=== PATIENT | female | born 1940 | race Caucasian/White ===

== ENCOUNTER → 2017-08-06 | Outpatient (CLI) | payer MEDICARE ==
[2017-08-06 14:05] LABS: Blood Urea Nitrogen 18 mg/dL (7-17)
--- NOTE | 2017-08-06 15:40 | CT ---
EXAMINATION TYPE: CT abdomen pelvis w con DATE OF EXAM: 08/06/2017 COMPARISON: NONE HISTORY: Flatulence, fatty liver, RLQ abdominal pain and abdominal distention CT DLP: 1223 mGycm CONTRAST: CT scan of the abdomen and pelvis is performed with Oral Contrast and with IV Contrast, patient injec peña with 100 ml mL of Isovue 300. FINDINGS: LUNG BASES-: No visible nodule. No infiltrate. There is evidence of cardiomegaly. LIVER/GB: No calcified gallstones. No space occupying hepatic lesion. Fatty hepatic infiltration n oted. Biliary tree is of normal caliber. PANCREAS: No inflammation. No distinct mass. SPLEEN: No splenic enlargement. No lesion seen. ADRENALS: No nodule. No thickening. KIDNEYS/BLADDER: No hydronephrosis. No nephrolithiasis. Simple appearing cyst lower pole right kidn ey measuring 2 cm.. Urinary bladder grossly unremarkable. BOWEL: Visualization of the appendix. Normal bowel caliber. No inflammation. GENITAL ORGANS: No gross abnormality. LYMPH NODES: No greater than 1cm abdominal or pelvic lymph nodes are appreciated. AORTA: No significant abnormality. OSSEOUS STRUCTURES: No significant abnormality is seen. OTHER: No significant additional abnormality is seen. IMPRESSION: 1. Hepatic steatosis. 2. Right renal cysts simple appearance.
== END | disposition home or self-care (01) ==
LOC: RADCTMAIN 13:24
PROVIDERS: ATTEND Family Medicine
DX: K76.0 Fatty (change of) liver, not elsewhere classified (principal); N28.1 Cyst of kidney, acquired; R10.31 Right lower quadrant pain
CPT/HCPCS: 82565; 84520; 74177; 36415; Q9967

== ENCOUNTER → 2018-02-02 | Outpatient (CLI) | payer MEDICARE ==
[2018-02-03 04:22] LABS: Cat Epith & Dander IgE <0.10 kU/L; Dermato. farinae IgE <0.10 kU/L; Dog Dander IgE <0.10 kU/L
[2018-02-03 04:24] LABS: Alternaria alternata IgE <0.10 kU/L; Birch IgE <0.10 kU/L; Cockroach IgE <0.10 kU/L; Maple (Box Elder) IgE <0.10 kU/L
[2018-02-03 04:25] LABS: Elm IgE <0.10 kU/L; Oak IgE <0.10 kU/L; Ragweed,Common IgE <0.10 kU/L
[2018-02-03 04:26] LABS: Red Top (Bentgrass) IgE <0.10 kU/L
== END | disposition home or self-care (01) ==
LOC: LABWHC1 16:50
PROVIDERS: ATTEND Otolaryngology
DX: J30.89 Other allergic rhinitis (principal)
CPT/HCPCS: 36415; 82785; 86003

== ENCOUNTER → 2018-02-27 | Outpatient (CLI) | payer MEDICARE ==
[2018-03-02 12:15] LABS: Alt. alternata IgE Class CLASS 0; Alternaria alternata IgE <0.35 kU/L (<0.35); Asperg. fumagatus IgE <0.35 kU/L (<0.35); Asperg. fumagatus IgE Class CLASS 0; Aureo. pullulans IgE <0.35 kU/L (<0.35); Birch(Com.Silvr) IgE <0.35 kU/L (<0.35); Birch(Com.Silvr) IgE Class CLASS 0; Candida albicans IgE Class CLASS 0; Cat Epith & Dander IgE <0.35 kU/L (<0.35); Cat Epith & Dander IgE Class CLASS 0; Clad herbarum IgE <0.35 kU/L (<0.35); Cockroach IgE <0.35 kU/L (<0.35); Com. Pigweed IgE <0.35 kU/L (<0.35); Com. Pigweed IgE Class CLASS 0; Cottonwood IgE <0.35 kU/L (<0.35); Dermato. Pteronyssinus IgE <0.35 kU/L (<0.35); Dermato. farinae IgE <0.35 kU/L (<0.35); Dermato. farinae IgE Class CLASS 0; Dog Dander IgE <0.35 kU/L (<0.35); English Plantain IgE Class CLASS 0; Epicoccum purpurascens Class CLASS 0; Epicoccum purpurascens IgE <0.35 kU/L (<0.35); Johnson Grass IgE Class CLASS 0; Lamb's Quarter IgE <0.35 kU/L (<0.35); Lamb's Quarter IgE Class CLASS 0; Maple (Box Elder) IgE <0.35 kU/L (<0.35); Maple (Box Elder) IgE Class CLASS 0; Mucor racemosus IgE <0.35 kU/L (<0.35); Mucor racemosus IgE Class CLASS 0; Oak IgE <0.35 kU/L (<0.35); Rhizopus nigricans IgE <0.35 kU/L (<0.35); S.rostrata/Helminth Class CLASS 0; S.rostrata/Helminth IgE <0.35 kU/L (<0.35); Sycamore(Mpl.Lf) IgE <0.35 kU/L (<0.35); Timothy Grass IgE <0.35 kU/L (<0.35); Walnut Tree IgE <0.35 kU/L (<0.35); Walnut Tree IgE Class CLASS 0; White Ash IgE Class CLASS 0
== END | disposition home or self-care (01) ==
LOC: LABWHC1 16:06
PROVIDERS: ATTEND Otolaryngology
DX: J30.89 Other allergic rhinitis (principal)
CPT/HCPCS: 36415; 86003

== ENCOUNTER → 2018-04-14 | Outpatient (CLI) | payer MEDICARE ==
[2018-04-14 16:20] LABS: Basophils # (A) 0.1 k/uL (0-0.2); Basophils % (A) 1 %; Eosinophils # (A) 0.2 k/uL (0-0.7); Eosinophils % (A) 2 %; Lymphocytes # (A) 2.8 k/uL (1.0-4.8); Lymphocytes % (A) 35 %; MCH 30.4 pg (25.0-35.0); MCHC 32.6 g/dL (31.0-37.0); MCV 93.1 fL (80.0-100.0); Mean Platelet Volume 7.1; Monocytes # (A) 0.6 k/uL (0-1.0); Monocytes % (A) 7 %; Neutrophils # (A) 4.3 k/uL (1.3-7.7); Neutrophils % (A) 53 %; Platelet Count 288 k/uL (150-450); RBC 4.62 m/uL (3.80-5.40); RDW 12.7 % (11.5-15.5); WBC 8.1 k/uL (3.8-10.6)
[2018-04-15 01:05] LABS: Anion Gap 10.5 mmol/L (4.00-12.00); Carbon Dioxide 25.5 mmol/L (21.6-31.8); Potassium 3.6 mmol/L (3.5-5.5)
== END | disposition home or self-care (01) ==
LOC: LABWHC1 14:59
PROVIDERS: ATTEND Obstetrics & Gynecology
DX: Z01.818 Encounter for other preprocedural examination (principal); Z01.812 Encounter for preprocedural laboratory examination
CPT/HCPCS: 36415; 80048; 85025; 93005

== ENCOUNTER 2018-04-23 05:30 | Inpatient (IN) | payer MEDICARE ==
--- NOTE | 2018-04-22 18:04 | P.HPOB ---
History of Present Illness H&P Date: 04/22/18 Chief Complaint: Vaginal prolapse Raven is a 77-year-old female with vaginal prolapse. She is symptomatic and has a significant posterior prolapse with some anterior prolapse. She is scheduled for a posterior repair with possible anterior repair. She was offered evaluation and referral to urogynecology for which she declined. Risks/ benefits/alternatives to this procedure were discussed with the patient in detail and all questions were answered for her prior to proceeding to the operating room. She's had these prolapse for a significant time but the symptoms have gotten worse and she is noted to have a grade 3 rectocele. Small cystocele was noted on exam but the rectocele essentially blocks the cystocele was completely. Uterus itself is high in the vagina and does not descend but it was explained her that this may change some during the repair but no hysterectomy is scheduled for planned at this time. All other questions were answered for her prior to proceeding to the operating room. On physical exam vital signs are stable and afebrile. Heart regular, lungs clear, extremities are without pain. Abdomen is soft and nontender. Pelvic exam as above. Past Medical History Past Medical History: COPD, Hyperlipidemia, Hypertension, Myocardial Infarction ([place]), Rheumatoid Arthritis ([place]) Additional Past Medical History / Comment(s): HEALING WOUND FROM [facility] SURGERY. ONLEFT, INNER CALF Last Myocardial Infarction Date:: UNKNOWN History of Any Multi-Drug Resistant Organisms: None Reported Past Surgical History: Back Surgery, Heart Catheterization With Stent, Hernia Repair, Tonsillectomy Additional Past Surgical History / Comment(s): BILATERAL CATARACTS WITH LENS. UMB HERNIA. LAMINECTOMY. Past Anesthesia/Blood Transfusion Reactions: Motion Sickness Date of Last Stent Placement:: 2008 Past Psychological History: No Psychological Hx Reported Smoking Status: Former smoker Past Alcohol Use History: Rare Additional Past Alcohol Use History / Comment(s): QUIT IN 1989, STARTED UP AGAIN A COUPLE YEARS AGO. FINALLY QUIT 2014. Past Drug Use History: None Reported - Past Family History Mother Family Medical History: No Reported History Medications and Allergies Home Medications Medication Instructions Recorded Confirmed Type Albuterol Inhaler [Ventolin Hfa 1 puff INHALATION DIRECTED PRN 04/17/1804/17 History Inhaler] Aspirin [Adult Low Dose Aspirin EC] 81 mg PO DAILY 04/17/18 04/17/18 History Cetirizine HCl [Zyrtec] 10 mg PO HS PRN 04/17/18 04/17/18 History Cholecalciferol [Vitamin D3] 5,000 unit PO 04/17/18 History Ibuprofen 200 - 400 mg PO Q6H PRN 04/17/18 04/17/18 History Losartan Potassium [Cozaar] 100 mg PO HS 04/17/18 04/17/18 History Metoprolol Tartrate [Lopressor] 12.5 mg PO BID 04/17/18 04/17/18 History Multivitamins, Thera [Multivitamin 1 tab PO DAILY 04/17/18 04/17/18 History (formulary)] [place]-3 Fatty Acids/Fish Oil [Fish 1 cap PO DAILY 04/17/18 04/17/18 History Oil 1,000 mg Softgel] Pravastatin Sodium [Pravachol] 40 mg PO HS 04/17/18 04/17/18 History Ubidecarenone [Co Q-10] 100 mg PO DAILY 04/17/18 04/17/18 History Umeclidinium Brm/Vilanterol Tr 1 puff INHALATION QAM 04/17/18 04/17/18 History [Anoro Ellipta 62.5-25 Mcg INH] amLODIPine [Norvasc] 5 mg PO HS 04/17/18 04/17/18 History Allergies Allergy/AdvReac Type Severity Reaction Status Date / Time cephalexin [From Keflex] AdvReac THRUSH Verified 04/17/18 14:37 Exam Osteopathic Statement: *. No significant issues noted on an osteopathic structural exam other than those noted in the History and Physical/Consult. - OBG Physical Exam Breast: both: normal (no masses) Abdomen: bowel sounds normal, no diffuse tenderness, no bruit present, no guarding noted, no hepatomegaly, no splenomegaly, no mass Vulva: both: normal Vagina: rectocele, cystocele Cervix: no lesion, no discharge Uterus: normal size, normal contour Adnexa: both: normal
[~2018-04-23 05:30] MED LIST: DEXAMETHASONE SOD PHOSPHATE 10 MG/ML 1 ML VIAL IV ONE; HYDROmorphone 0.5 MG/0.5 ML SYRINGE IVP PRN; LIDOCAINE 1% 20 ML VIAL (10MG/ML) FOR IV START INTRADERMA PRN; MIDAZOLAM (PF) 2 MG/2 ML VIAL IV PRN; ONDANSETRON 4 MG/2 ML VIAL IVP ONE; ceFAZolin IN SWFI 2 GM/20 ML SYRINGE IVP ONE; fentaNYL (PF) 50 MCG/ML 2 ML AMP IV PRN
[2018-04-23] MEDS: LACTATED RINGERS 1,000 ML IV SCH ×2 (06:35→20:25)
[2018-04-23] MEDS ORDERED: fentaNYL (PF) 50 MCG/ML 2 ML AMP ONE (07:49)
[2018-04-23] MEDS ORDERED: MIDAZOLAM 2 MG/2 ML VIAL ONE (07:49)
[2018-04-23] MEDS ORDERED: MORPHINE SULFATE (PF) 0.3 MG/0.3 ML SYR ONE (07:49)
[2018-04-23] MEDS ORDERED: EPINEPHRINE IV ONE ×2 (08:12)
[2018-04-23] MEDS ORDERED: BACITRACIN 500 UNIT/GM OINT 28.4 GM TUBE TOPICAL ONE (08:12)
[2018-04-23] MEDS ORDERED: SODIUM CHLORIDE 0.9% IV ONE ×2 (08:12)
[2018-04-23] MEDS ORDERED: diphenhydrAMINE 50 MG/ML 1 ML VIAL IVP PRN (08:45)
[2018-04-23] MEDS ORDERED: NALBUPHINE 10 MG/ML (1 ML AMP) IV PRN (08:45)
[2018-04-23] MEDS ORDERED: KETOROLAC 30 MG/ML 1 ML VIAL IVP PRN ×2 (08:45→08:52)
[2018-04-23] MEDS ORDERED: NALOXONE 0.4 MG/ML 1 ML VIAL IV PRN (08:45)
[2018-04-23] MEDS ORDERED: ONDANSETRON 4 MG/2 ML VIAL IVP PRN (08:52)
[2018-04-23] MEDS ORDERED: SIMETHICONE 80 MG CHEWABLE PO PRN (08:52)
[2018-04-23] MEDS ORDERED: ALBUTEROL NEBULIZED 2.5 MG/3 ML INHALATION PRN (08:59)
[2018-04-23] MEDS ORDERED: LORATADINE 10 MG TAB PO PRN (08:59)
--- NOTE | 2018-04-23 08:59 | P.OP ---
Date of Procedure: 04/23/18 Preoperative Diagnosis: Rectocele/enterocele Postoperative Diagnosis: Same with minimal cystocele Procedure(s) Performed: Posterior repair Anesthesia: MIKELA, spinal Surgeon: Jase Collazo Rn Relief Charge #1: Naomy Campoverde Estimated Blood Loss (ml): 10 IV fluids (ml): 400 Urine output (ml): 20 Pathology: other (Vaginal mucosa) Condition: stable Disposition: floor Operative Findings: Large enterocele and rectocele which was repaired. Minimal cystocele which was left without repair Description of Procedure: Patient was taken to the operating suite where a spinal anesthetic was found be adequate. She was prepped and draped in the normal sterile fashion and placed in the dorsal lithotomy position. Initially the bottom of the vagina at the introitus was grasped between 2 Allis clamps and dilute epinephrine solution was injected. Once this was accomplished the dilute epinephrine solution was injected to the apex of the enterocele/rectocele. Once this was accomplished using a 10 blade the incision at the introitus was made and then using the Metzenbaum scissors the enterocele/rectocele was undermined and incised the midline up to the apex. Borders were marked with Allis clamps and the apex was also marked with an Allis clamp. Once this was accomplished blunt dissection with minimal sharp dissection of the enterocele/rectocele was done to remove the enterocele all the way back to its normal anatomic position. It was then held in place and then a pursestring suture was used to close the enterocele back into the pelvis. 4 Aundrea plication sutures were then placed to reapproximate the tissues in their normal anatomic position. Metzenbaum scissors was then used to excise the vaginal mucosa and 0 Vicryl suture was used to reapproximate the vagina in a running locking fashion. The finish of the closure was done as in an episiotomy. 2 external 3-0 Vicryl sutures were placed bring the skin completely together. Once this was accomplished thorough evaluation of the cystocele was done it was grade 1 with no significant prolapse and as this was not bothering her it was left alone partly due to the fact that closing this off would've significantly reduced her vaginal tissues as well as likely damage some of the rectocele repair. Morfin catheter was then placed with clear urine noted and I performed gauze with bacitracin was placed in the vagina. All instruments were then removed. Sponge, lap, needle counts were all correct 2. Patient was then taken to the recovery room in stable and satisfactory condition.
[2018-04-23] MEDS: FORMOTEROL FUMARATE 20 MCG/2 ML NEBU INHALATION SCH ×2 (13:18→19:47)
[2018-04-23] MEDS: IPRATROPIUM 0.5 MG/2.5 ML NEBU INHALATION SCH ×3 (13:18→19:47)
[2018-04-23 15:25] VITALS: RESP 16
--- NOTE | 2018-04-23 16:01 | P.CONS ---
History of Present Illness - Reason for Consult Consult date: 04/23/18 Medical management Requesting physician: Jase Collazo - Chief Complaint Rectocele - History of Present Illness This is a 77-year-old female with a known past medical history of COPD, hypertension, hyperlipidemia, myocardial infarction, coronary disease with previous cardiac stents and skin cancer on the left lower leg. Patient presented to the hospital with complaints of vaginal prolapse. She was found to have a rectocele and enterocele and underwent surgical repair of this today with Dr. Collazo and Dr. Campoverde. Patient tolerated surgery well. medications. Pain is controlled. Vitals are stable. Patient denies any fever, chills, sweats, nausea or vomiting, bowel movement changes or urinary symptoms. On patient's left lower leg she had a biopsy done in in February with Dr. Robert COPELAND and was diagnosed with skin cancer. Patient reports she's not sure what type of skin cancer she knows it was not melanoma. There is some erythema around the area. It's about 2 cm x 2 cm in size with a serosanguineous drainage and granulation tissue noted. There is some erythema around it and some erythema noted in the ankle area as well just below the biopsied area. Patient reports that she was told to keep the area moist with Vaseline and antibiotic ointment. Patient also reports that she is history of dermatitis and some the area around her ankle is kind of chronic changes. She reports that the area has shown improvement since February. We have been consulted for medical management. Review of Systems Please refer to HPI otherwise unremarkable Past Medical History Past Medical History: COPD, Hyperlipidemia, Hypertension, Myocardial Infarction ([place]), Rheumatoid Arthritis ([place]) Additional Past Medical History / Comment(s): HEALING WOUND FROM [facility]GERY. ONLEFT, INNER CALF Last Myocardial Infarction Date:: UNKNOWN History of Any Multi-Drug Resistant Organisms: None Reported Past Surgical History: Back Surgery, Heart Catheterization With Stent, Hernia Repair, Tonsillectomy Additional Past Surgical History / Comment(s): BILATERAL CATARACTS WITH LENS. UMB HERNIA. LAMINECTOMY. Past Anesthesia/Blood Transfusion Reactions: Motion Sickness Date of Last Stent Placement:: 2008 Past Psychological History: No Psychological Hx Reported Smoking Status: Former smoker Past Alcohol Use History: Rare Additional Past Alcohol Use History / Comment(s): QUIT IN 1989, STARTED UP AGAIN A COUPLE YEARS AGO. FINALLY QUIT 2014. Past Drug Use History: None Reported - Past Family History Mother Family Medical History: No Reported History Medications and Allergies Home Medications Medication Instructions Recorded Confirmed Type Albuterol Inhaler [Ventolin Hfa 1 puff INHALATION RT-DAILY PRN 04/17/18 History Inhaler] Aspirin [Adult Low Dose Aspirin EC] 81 mg PO DAILY 04/17/18 04/23/18 History Cetirizine HCl [Zyrtec] 10 mg PO HS PRN 04/17/18 04/23/18 History Cholecalciferol [Vitamin D3] 5,000 unit PO DAILY 04/17/18 04/23/18 History Ibuprofen 200 - 400 mg PO Q6H PRN 04/17/18 04/23/18 History Losartan Potassium [Cozaar] 100 mg PO HS 04/17/18 04/23/18 History Metoprolol Tartrate [Lopressor] 12.5 mg PO BID 04/17/18 04/23/18 History Multivitamins, Thera [Multivitamin 1 tab PO DAILY 04/17/18 04/23/18 History (formulary)] [place]-3 Fatty Acids/Fish Oil [Fish 1 cap PO DAILY 04/17/18 04/23/18 History Oil 1,000 mg Softgel] Pravastatin Sodium [Pravachol] 40 mg PO HS 04/17/18 04/23/18 History Ubidecarenone [Co Q-10] 100 mg PO DAILY 04/17/18 04/23/18 History Umeclidinium Brm/Vilanterol Tr 1 puff INHALATION RT-DAILY 04/17/18 04/23/18 History [Anoro Ellipta 62.5-25 Mcg INH] amLODIPine [Norvasc] 5 mg PO HS 04/17/18 04/23/18 History Allergies Allergy/AdvReac Type Severity Reaction Status Date / Time cephalexin [From Keflex] AdvReac THRUSH Verified 04/23/18 09:50 Physical Exam Vitals: Vital Signs Temp Pulse Resp BP Pulse Ox 04/23/18 15:22 98.8 F 16 135/96 95 04/23/18 13:39 93 L 04/23/18 12:47 98.2 F 83 18 136/71 93 L 04/23/18 12:17 79 18 133/72 04/23/18 11:54 16 93 L 04/23/18 11:47 72 16 123/68 93 L 04/23/18 11:17 73 16 141/80 95 04/23/18 11:01 62 17 134/73 94 L 04/23/18 10:47 97.4 F L 69 16 136/74 97 04/23/18 10:32 67 16 134/75 96 04/23/18 10:25 98 04/23/18 10:24 16 98 04/23/18 10:15 63 16 135/71 98 04/23/18 10:02 97.4 F L 68 16 138/73 91 L 04/23/18 09:44 95 04/23/18 09:42 66 16 129/68 99 04/23/18 09:30 56 L 16 128/69 99 04/23/18 09:15 57 L 16 124/60 99 04/23/18 09:01 64 14 130/65 99 04/23/18 08:50 97.8 F 67 14 131/64 94 L 04/23/18 06:34 97.6 F 66 17 163/83 95 Intake and Output 04/23/18 04/23/18 04/23/18 06:59 14:59 22:59 Intake Total 401 Output Total 30 Balance 371 Intake: IV 401 Output: Urine 20 Estimated Blood Loss 10 Head normocephalic Neck supple Lungs clear to auscultation bilaterally no wheezing or crackles Heart regular rate and rhythm S1-S2, no rub or gallop Abdomen is soft nontender nondistended positive bowel sounds no hepatosplenomegaly Extremities left leg +1 edema lateral aspect of the left lower leg 2 x 2 cm circular wound from biopsy with granulation tissue and serosanguineous drainage. Also some erythema around the wound and some erythema noted in the down towards the left ankle. Neuro alert and orientated to 3 Assessment and Plan Assessment: 1. Rectocele/enterocele status post posterior repair. Minimal cystocele left without repair. Continue postoperative orders per [facility] team 2. Left lower leg wound from biopsy for skin cancer. Continue wound care treatment per her gauger delivery with antibiotic ointment and Vaseline and keep area covered with Band-Aid. Per patient the wound is showing improvement. We' ll hold off on starting antibiotics at this time. We will consult infectious disease for further evaluation. 3. History of COPD stable resume inhaler 4. Essential hypertension: Blood pressure stable continue his current medications 5. Hyperlipidemia 6. History of myocardial infarction with coronary artery disease and cardiac stents 7. History of dermatitis DVT prophylaxis SCDs and GI prophylaxis Pepcid Thank you for this consultation. We will continue to follow along during patient's hospitalization. Time with Patient: Greater than 30 (Greater than 50% of the total time spent in counseling and coordination of care.I performed an examination of the patient and discussed their management with the physician Health Promotion Officer. I have reviewed the Physician Health Promotion Officer's notes and agree with the documented findings and plan of care)
[2018-04-23] MEDS: METOPROLOL TARTRATE 12.5 MG TAB PO SCH ×2 (20:25→20:58)
[2018-04-23] MEDS: DOCUSATE 100 MG CAP PO SCH ×2 (20:25→20:57)
[2018-04-23] MEDS ORDERED: LOSARTAN 50 MG TAB PO SCH (21:00)
[2018-04-23] MEDS ORDERED: PRAVASTATIN SODIUM 40 MG TAB PO SCH (21:00)
[2018-04-23] MEDS ORDERED: amLODIPine 5 MG TAB PO SCH (21:00)
[2018-04-24 05:54] LABS: Basophils # (A) 0.1 k/uL (0-0.2); Basophils % (A) 0 %; Eosinophils # (A) 0.3 k/uL (0-0.7); Eosinophils % (A) 1 %; HCT 38.9 % (34.0-46.0); HGB 13.1 gm/dL (11.4-16.0); Lymphocytes # (A) 2.6 k/uL (1.0-4.8); Lymphocytes % (A) 14 %; MCH 31.5 pg (25.0-35.0); MCHC 33.6 g/dL (31.0-37.0); MCV 93.7 fL (80.0-100.0); Mean Platelet Volume 6.6; Monocytes # (A) 0.8 k/uL (0-1.0); Monocytes % (A) 5 %; Neutrophils # (A) 14.1 k/uL (1.3-7.7); Neutrophils % (A) 79 %; Platelet Count 283 k/uL (150-450); RBC 4.15 m/uL (3.80-5.40); RDW 12.3 % (11.5-15.5)
--- NOTE | 2018-04-24 07:35 | P.PN ---
Progress Note - Text 04/24 717am 77 year old female ant repair,with a vas 0f 1. No c/o nausea or vomiting,doing well.She only has complaints of pruritis
[2018-04-24] MEDS: IPRATROPIUM 0.5 MG/2.5 ML NEBU INHALATION SCH (08:19)
[2018-04-24] MEDS: FORMOTEROL FUMARATE 20 MCG/2 ML NEBU INHALATION SCH (08:19)
[2018-04-24] MEDS: DOCUSATE 100 MG CAP PO SCH (08:20)
[2018-04-24] MEDS: METOPROLOL TARTRATE 12.5 MG TAB PO SCH (08:29)
[2018-04-24] MEDS ORDERED: CHOLECALCIFEROL 1,000 UNIT TAB PO SCH (09:00)
[2018-04-24] MEDS ORDERED: FAMOTIDINE 20 MG TAB PO SCH (09:00)
[2018-04-24] MEDS ORDERED: diphenhydrAMINE 25 MG CAP PO STA (09:01)
[2018-04-24 09:09] VITALS: BP 130/63; PULSE 74; TEMP 97.4
--- NOTE | 2018-04-24 09:10 | P.DS ---
Providers Date of admission: 04/23/18 05:30 Expected date of discharge: 04/24/18 Attending physician: Jase Collazo Consults: 04/23/18 09:04 Consult Physician Urgent Consulting Provider: Chely [place] Consult Reason/Comments: medical management Do you want consulting provider notified?: Yes 04/23/18 14:45 Consult Physician Urgent Consulting Provider: Andrew Lee Consult Reason/Comments: medical management Do you want consulting provider notified?: Yes 04/23/18 16:01 Consult Physician Routine Consulting Provider: Beryl Keenan Consult Reason/Comments: left leg wound Do you want consulting provider notified?: Yes Primary care physician: Chely Montana Hospital Course: Raven is doing very well postop day 1. She is ambulating, voiding, and she is tolerating her diet. She voices no complaints. Vital signs are stable and afebrile. Heart regular, lungs clear, extremities without pain. Abdomen soft and nontender. We'll plan discharged home today with instructions to follow up with me in 1 week. Very lengthy discussion of limitations was done she is to have no heavy lifting nothing heavier than about a gentle milk. She is also aware to have complete pelvic rest until this is healed. All other questions are answered for her at this time and she is stable for discharge at this time. She does not want any pain medication to go home with her. Patient Condition at Discharge: Good Plan - Discharge Summary Discharge Rx Participant: Yes New Discharge Prescriptions: No Action Umeclidinium Brm/Vilanterol Tr [Anoro Ellipta 62.5-25 Mcg INH] 1 puff INHALATION RT-DAILY Losartan Potassium [Cozaar] 100 mg PO HS Metoprolol Tartrate [Lopressor] 12.5 mg PO BID [place]-3 Fatty Acids/Fish Oil [Fish Oil 1,000 mg Softgel] 1 cap PO DAILY Multivitamins, Thera [Multivitamin (formulary)] 1 tab PO DAILY Albuterol Inhaler [Ventolin Hfa Inhaler] 1 puff INHALATION RT-DAILY PRN PRN Reason: Shortness Of Breath Or Wheezing Ubidecarenone [Co Q-10] 100 mg PO DAILY RX: Aspirin [Adult Low Dose Aspirin EC] 81 mg PO DAILY Cetirizine HCl [Zyrtec] 10 mg PO HS PRN PRN Reason: Allergy Symptoms amLODIPine [Norvasc] 5 mg PO HS RX: Pravastatin Sodium [Pravachol] 40 mg PO HS RX: Ibuprofen 200 - 400 mg PO Q6H PRN PRN Reason: Pain Cholecalciferol [Vitamin D3] 5,000 unit PO DAILY Discharge Medication List Albuterol Inhaler [Ventolin Hfa Inhaler] 1 puff INHALATION RT-DAILY PRN [History] Cetirizine HCl [Zyrtec] 10 mg PO HS PRN 04/17/18 [History] Cholecalciferol [Vitamin D3] 5,000 unit PO DAILY 04/17/18 [History] Losartan Potassium [Cozaar] 100 mg PO HS 04/17/18 [History] Metoprolol Tartrate [Lopressor] 12.5 mg PO BID 04/17/18 [History] Multivitamins, Thera [Multivitamin (formulary)] 1 tab PO DAILY 04/17/18 [History ] [place]-3 Fatty Acids/Fish Oil [Fish Oil 1,000 mg Softgel] 1 cap PO DAILY [History] RX: Aspirin [Adult Low Dose Aspirin EC] 81 mg PO DAILY 04/17/18 [History] RX: Ibuprofen 200 - 400 mg PO Q6H PRN 04/17/18 [History] RX: Pravastatin Sodium [Pravachol] 40 mg PO HS 04/17/18 [History] Ubidecarenone [Co Q-10] 100 mg PO DAILY 04/17/18 [History] Umeclidinium Brm/Vilanterol Tr [Anoro Ellipta 62.5-25 Mcg INH] 1 puff INHALATION RT-DAILY 04/17/18 [History] amLODIPine [Norvasc] 5 mg PO HS 04/17/18 [History] Follow up Appointment(s)/Referral(s): Jase Collazo DO [Doctor of Osteopathic Medicine] - 1 Week Activity/Diet/Wound Care/Special Instructions: christi to left leg wound daily , follow up with Dr Keenan in wound care center next week call [phone] to make an appointment No heavy lifting, limit stairs and driving. Complete pelvic rest. If any high temperatures, heavy bleeding, or severe pain she needs to call our office immediately. Discharge Disposition: HOME SELF-CARE
[2018-04-24 09:29] LABS: ALT 33 U/L (9-52); AST 27 U/L (14-36); Albumin 3.8 g/dL (3.5-5.0); Alkaline Phosphatase 60 U/L (38-126); Anion Gap 9 mmol/L; Blood Urea Nitrogen 18 mg/dL (7-17); Calcium 9.5 mg/dL (8.4-10.2); Carbon Dioxide 28 mmol/L (22-30); Chloride 102 mmol/L (98-107); Glucose 121 mg/dL (74-99); Sodium 139 mmol/L (137-145); Total Bilirubin 0.6 mg/dL (0.2-1.3); Total Protein 6.6 g/dL (6.3-8.2)
--- NOTE | 2018-04-24 09:42 | CONS ---
CONSULTATION DATE OF SERVICE: 04/23/2018 REASON FOR CONSULTATION: Left leg wound. HISTORY OF PRESENT ILLNESS: Patient is a 77-year-old female who was electively admitted to the hospital for her repair of rectocele and post surgery. The patient has been admitted to the hospital for postoperative care. The patient also gave a history of a skin cancer that was removed from her left leg back in February of 2018; however, the patient's wound has not healed since then. The patient did have mild dull aching pain to the leg wound area, more of 1 to 2/10, with no radiation. There is no sign of surrounding swelling, redness or any foul-smelling drainage. The patient is currently using Bactroban cream on it without any healing. I was asked to see the patient for further recommendation regarding local wound care in this patient currently with no open wound, not running any fever or elevated white count. REVIEW OF SYSTEMS: Positive points have been mentioned in HPI, the rest of the system has been negative. PAST MEDICAL HISTORY: Hypertension, hyperlipidemia, [place], rheumatoid arthritis, COPD, skin cancer. PAST SURGICAL HISTORY: Back surgery, PTCA with stent, hernia repair, tonsillectomy, bilateral cataract surgery, inguinal hernia repair, laminectomy. SOCIAL HISTORY: Remote history of smoking. Rarely drinks. No drug use. FAMILY HISTORY: No pertinent findings noticed. ALLERGIES: CEPHALEXIN. MEDICATIONS: Include the patient is currently on Ventolin, Norvasc, vitamin D3, Benadryl, Colace, Pepcid, Toradol, lactated Ringer, Claritin, Cozaar, Lopressor, Theragran, , Zofran, Pravachol and Bactroban cream. PHYSICAL EXAMINATION: Her blood pressure is 135/96 with a pulse of 83, temperature 98.8. She is 95% on room air. General description is an elderly female, lying in bed in no distress. No tachypnea or accessory muscle for respiration use. HEENT EXAMINATION: Shows no pallor or scleral icterus. Oral mucosa is dry. No pharyngeal erythema. No thrush. NECK: Trachea central, no thyromegaly. LUNGS: Unlabored breathing, clear to auscultation anteriorly. No wheeze or crackle. HEART: S1, S2. Regular rate and rhythm. ABDOMEN: Soft, no tenderness. No guarding. No rigidity. EXTREMITIES: Left leg with an open wound which did have some slough tissue at the base and no surrounding swelling or redness or any foul-smelling drainage. NEUROLOGICAL: The patient is awake, alert, oriented, mood and affect normal. LABS: No labs drawn today. DIAGNOSTIC IMPRESSION AND PLAN: Patient with a nonhealing wound to her left leg after the patient did have a surgery with the wall of skin cancer. Currently the wound looks clean with no evidence of any secondary cellulitis. Will recommend local wound care only. PLAN: 1. Discontinue the Bactroban cream. 2. Will apply Medihoney to the wound followed by moist dressing to be changed daily. 3. Patient is advised to follow up with the Wound Care Center in the next week to continue local wound care. 4. There is no evidence of any secondary cellulitis, hence no need for antibiotic therapy. Thank you for this consultation. Will follow this patient along with you. MMODL / IJN: [id number] /
[2018-04-24] MEDS ORDERED: MULTIVITAMINS, THERA 1 EACH TAB PO SCH (12:00)
--- NOTE | 2018-04-24 13:49 | P.PN ---
Subjective Progress Note Date: 04/24/18 This is a 77-year-old female with a known past medical history of COPD, hypertension, hyperlipidemia, myocardial infarction, coronary disease with previous cardiac stents and skin cancer on the left lower leg. Patient presented to the hospital with complaints of vaginal prolapse. She was found to have a rectocele and enterocele and underwent surgical repair of this today with Dr. Collazo and Dr. Campoverde. Patient tolerated surgery well. medications. Pain is controlled. Vitals are stable. Patient denies any fever, chills, sweats, nausea or vomiting, bowel movement changes or urinary symptoms. On patient's left lower leg she had a biopsy done in in February with Dr. Robert COPELAND and was diagnosed with skin cancer. Patient reports she's not sure what type of skin cancer she knows it was not melanoma. There is some erythema around the area. It's about 2 cm x 2 cm in size with a serosanguineous drainage and granulation tissue noted. There is some erythema around it and some erythema noted in the ankle area as well just below the biopsied area. Patient reports that she was told to keep the area moist with Vaseline and antibiotic ointment. Patient also reports that she is history of dermatitis and some the area around her ankle is kind of chronic changes. She reports that the area has shown improvement since February. We have been consulted for medical management. 04/24/2018 patient is scheduled for discharge today. She was seen by infectious disease no evidence of cellulitis on the left leg. No antibiotics are required. White count is 18 today likely related to the dexamethasone she received in the OR. Patient has no new complaints. Denies any chest pain or shortness of breath. Denies any nausea or vomiting. Reports passing gas. Denies any burning with urination. Objective - Vital Signs Vital signs: Vital Signs Temp 97.4 F L 04/24/18 08:00 Pulse 74 04/24/18 08:00 Resp 16 04/24/18 12:00 BP 130/63 04/24/18 08:00 Pulse Ox 98 04/24/18 12:00 Intake & Output 04/23/18 04/24/18 04/24/18 18:59 06:59 18:59 Intake Total 401 Output Total 630 700 400 Balance -229 -700 -400 Intake: IV 401 Output: Urine 620 700 400 Uretheral (Morfin) 600 Estimated Blood Loss 10 Other: # Voids 1 - Exam Head normocephalic Neck supple Lungs clear to auscultation bilaterally no wheezing or crackles Heart regular rate and rhythm S1-S2, no rub or gallop Abdomen is soft nontender nondistended positive bowel sounds no hepatosplenomegaly Extremities no edema . Left leg bandaged bandages clean dry and intact Neuro alert and orientated to 3 - Labs CBC & Chem 7: 04/24/18 05:40 04/24/18 09:00 Labs: Abnormal Lab Results - Last 24 Hours (Table) 04/24/18 04/24/18 Range/Units 05:40 09:00 WBC 18.0 H (3.8-10.6) k/uL Neutrophils # 14.1 H (1.3-7.7) k/uL BUN 18 H (7-17) mg/dL Glucose 121 H (74-99) mg/dL Assessment and Plan Assessment: 1. Rectocele/enterocele status post posterior repair. Minimal cystocele left without repair. Continue postoperative orders per [facility] team 2. Left lower leg wound from biopsy for skin cancer. Infectious disease is recommending Lukas escobar. Patient is to follow-up with infectious disease in 1 week 3. History of COPD stable resume inhaler 4. Essential hypertension: Blood pressure stable continue his current medications 5. Hyperlipidemia 6. History of myocardial infarction with coronary artery disease and cardiac stents 7. History of dermatitis 8. Leukocytosis likely related to the dexamethasone received in the OR. Patient is medically stable for discharge. We'll follow-up with her PCP in 1 week. We'll hold aspirin until evaluated by her PCP due to her recent surgery. DVT prophylaxis SCDs and GI prophylaxis Pepcid I performed an examination of the patient and discussed their management with the physician [employer]. I have reviewed the Physician [employer]or's notes and agree with the documented findings and plan of care
--- NOTE | 2018-04-24 15:30 | PN ---
PROGRESS NOTE DATE OF SERVICE: 04/24/2018. REASON FOR FOLLOWUP: 1. Left leg wound. 2. Leukocytosis. INTERVAL HISTORY: The patient is afebrile. She is breathing comfortably. Denies any chest pain, or any cough or abdominal pain or any worsening pain to the left leg area. PHYSICAL EXAMINATION: Blood pressure 130/63 with a pulse of 74. Temperature is 97.4, she is 98% on room air. General description is an elderly female lying in bed in no distress. Respiratory system: Unlabored breathing. Clear to auscultation anteriorly. Heart S1, S2. Regular rate and rhythm. Abdomen soft, no tenderness. Left leg wound is currently dressed up. No obvious drainage on the dressing. LABS: White count of 18,000. BUN of 18, creatinine 0.70. DIAGNOSTIC IMPRESSION AND PLAN: 1. Patient with left leg wound, postsurgical. No evidence of any cellulitis. Local wound care with [facility]. Advised to follow up [facility] next [facility]. 2. The patient elevated white count more likely reactive post surgery. Clinically doubt infectious etiology. Patient does not look toxic. No fever. No need for antibiotic on discharge. Plan of care was discussed with the patient's nurse as well as the nurse practitioner for the medical team. MMODL / IJN: [id number] /
== END 2018-04-24 14:00 | disposition home or self-care (01) | DRG 747 ==
LOC: 2ORMAIN 05:30 → EDSTATUS 07:30 → 4FBP 09:01
PROVIDERS: ADMIT Obstetrics & Gynecology; ATTEND Obstetrics & Gynecology
PROC: 0JQC0ZZ Repair Pelvic Region Subcutaneous Tissue and Fascia, Open Approach (ICD-10-PCS; 2018-04-23)
PROC: 0UQF0ZZ Repair Cul-de-sac, Open Approach (ICD-10-PCS; principal; 2018-04-23 07:30)
DX: N81.5 Vaginal enterocele (principal); J44.9 Chronic obstructive pulmonary disease, unspecified; S81.802A Unspecified open wound, left lower leg, initial encounter; M06.9 Rheumatoid arthritis, unspecified; N81.6 Rectocele; D72.829 Elevated white blood cell count, unspecified; E78.5 Hyperlipidemia, unspecified; I10 Essential (primary) hypertension; I25.2 Old myocardial infarction; L29.9 Pruritus, unspecified; N81.10 Cystocele, unspecified; I25.10 Atherosclerotic heart disease of native coronary artery without angina pectoris; T38.0X5A Adverse effect of glucocorticoids and synthetic analogues, initial encounter; Z79.82 Long term (current) use of aspirin; Z79.899 Other long term (current) drug therapy; Z85.828 Personal history of other malignant neoplasm of skin; Z87.891 Personal history of nicotine dependence; Z95.5 Presence of coronary angioplasty implant and graft
CPT/HCPCS: 80053; 85025; 86850; 86900; 86901; 88302

== ENCOUNTER → 2018-11-18 | Outpatient (CLI) | payer MEDICARE ==
[2018-11-18 23:55] LABS: Shrimp IgE <0.10 kU/L; Soybean IgE <0.10 kU/L
[2018-11-18 23:56] LABS: Clam IgE <0.10 kU/L; Scallop IgE <0.10 kU/L; Walnut IgE (Food) <0.10 kU/L
[2018-11-18 23:59] LABS: Egg White IgE <0.10 kU/L
[2018-11-19] LABS: Codfish IgE <0.10 kU/L
[2018-11-19 00:01] LABS: Peanut IgE <0.10 kU/L
== END | disposition home or self-care (01) ==
LOC: LABWHC1 15:56
PROVIDERS: ATTEND Otolaryngology
DX: J30.89 Other allergic rhinitis (principal)
CPT/HCPCS: 36415; 82785; 86001; 86003